=== PATIENT | male | born 1980 | race Caucasian/White ===

== ENCOUNTER 2018-03-16 16:55 | Emergency (ER) | payer OTHER ==
--- NOTE | 2018-03-16 17:56 | RAD REPORT ---
EXAM DESCRIPTION: RAD - Ankle Left 3 View - 03/16/2018 5:45 pm CLINICAL HISTORY: Left ankle pain, no known injury COMPARISON: None. FINDINGS: No fracture, dislocation or periosteal reaction. No joint effusion seen. No joint space na rrowing. No soft tissue abnormality. IMPRESSION: Negative left ankle for fracture or other acute finding.
--- NOTE | 2018-03-16 18:24 | ER ---
Nurse's Notes [facility] Name: Luis Hooper Age: 37 yrs Sex: Male : 1980 Arrival Date: 03/16/2018 Time: 16:57 Bed 13 Private MD: Diagnosis: Monoarthritis, not elsewhere classified, left ankle and foot Presentation: 03/16 16:59 Presenting complaint: Patient states: left foot pain started yesterday while at work. sv Denies any injury. Transition of care: patient was not received from another setting of care. Onset of symptoms was March 15, 2018. Care prior to arrival: None. 16:59 Method Of Arrival: Ambulatory sv 16:59 Acuity: JAMIE 4 sv 17:05 Risk Assessment: Do you want to hurt yourself or someone else? Patient reports no rb1 desire to harm self or others. Initial Sepsis Screen: Does the patient meet any 2 criteria? No. Patient's initial sepsis screen is negative. Does the patient have a suspected source of infection? No. Patient's initial sepsis screen is negative. Historical: - Allergies: 17:00 Tramadol HCl; sv - Home Meds: 17:05 None [Active]; rb1 - PMHx: 17:05 None; rb1 - PSHx: 17:00 Cholecystectomy; Tonsillectomy; sv - Immunization history:: Flu vaccine is not up to date. - Social history:: Smoking status: Patient uses tobacco products, smokes one pack cigarettes per day. - Ebola Screening: : No symptoms or risks identified at this time. Screenin:05 Abuse screen: Denies threats or abuse. Nutritional screening: No deficits noted. rb1 Tuberculosis screening: No symptoms or risk factors identified. Fall Risk None identified. Assessment: 17:05 General: Appears in no apparent distress. comfortable, Behavior is calm, cooperative. rb1 Pain: Complains of pain in left ankle Pain currently is 1 out of 10 on a pain scale. Pain began 1 day ago. Aggravated by weight bearing. Neuro: Level of Consciousness is awake, alert, obeys commands, Oriented to person, place, time, situation. Cardiovascular: Capillary refill < 3 seconds is brisk in bilateral fingers. Respiratory: Airway is patent Respiratory effort is even, unlabored, Respiratory pattern is regular, symmetrical. GI: No signs and/or symptoms were reported involving the gastrointestinal system. : No signs and/or symptoms were reported regarding the genitourinary system. Derm: Skin is pink, warm \T\ dry. Musculoskeletal: Swelling present in left ankle. 18:05 Reassessment: Patient appears in no apparent distress at this time. No changes from rb1 previously documented assessment. Vital Signs: 17:00 BP 153 / 104; Pulse 97; Resp 18; Temp 97.8; Pulse Ox 97% ; Height 5 ft. 10 in. (177.80 sv cm); Pain 1/10; 18:00 BP 140 / 96; Pulse 83; Resp 17; Pulse Ox 99% on R/A; Pain 1/10; rb1 ED Course: 16:57 Patient arrived in ED. as 17:00 Triage completed. sv 17:00 Arm band placed on Patient placed in an exam room, on a stretcher. sv 17:01 Chilo Patel MD is Attending Physician. gs 17:02 Denise Hurtado RN is Primary Nurse. rb1 17:05 Patient has correct armband on for positive identification. Bed in low position. Call rb1 light in reach. Side rails up X 1. Pulse ox on. NIBP on. 17:45 Ankle Left 3 View XRAY In Process Unspecified. EDMS 18:23 Sina Murray MD is Referral Physician. gs 18:37 No provider procedures requiring assistance completed. Patient did not have IV access rb1 during this emergency room visit. Administered Medications: 18:26 Drug: Ibuprofen 600 mg Route: PO; rb1 18:36 Follow up: Response: No adverse reaction; Medication administered at discharge. rb1 Outcome: 18:24 Discharge ordered by . gs 18:37 Patient left the ED. rb1 18:37 Discharged to home ambulatory. rb1 18:37 Condition: stable 18:37 Discharge instructions given to patient, Instructed on discharge instructions, follow up and referral plans. medication usage, Demonstrated understanding of instructions, follow-up care, medications, Prescriptions given X 1. Signatures: Dispatcher [employer] EDIN Saundra Rojo RN RN sv Martinez, Amelia as Denise Hurtado, RN RN rb1 Chilo Patel MD MD Corrections: (The following items were deleted from the chart) 17:16 17:05 Pain: Complains of pain in left ankle Pain currently is 1 out of 10 on a pain rb1 scale. Pain began 1 day ago. rb1
--- NOTE | 2018-03-16 18:24 | EDPHYS ---
Physician Documentation [facility] Name: Luis Hooper Age: 37 yrs Sex: Male : 1980 Arrival Date: 03/16/2018 Time: 16:57 Bed 13 Private MD: ED Physician Chilo Patel HPI: 03/16 18:17 This 37 yrs old Male presents to ER via Ambulatory with complaints of Foot gs Pain. 18:17 The patient presents with pain, that is acute. The complaints affect the left ankle. gs Onset: The symptoms/episode began/occurred acutely. Associated signs and symptoms: Pertinent negatives: numbness. Modifying factors: The symptoms are alleviated by nothing, the symptoms are aggravated by nothing. Severity of symptoms: At their worst the symptoms were moderate, in the emergency department the symptoms are unchanged. The patient has not experienced similar symptoms in the past. Historical: - Allergies: 17:00 Tramadol HCl; sv - Home Meds: 17:05 None [Active]; rb1 - PMHx: 17:05 None; rb1 - PSHx: 17:00 Cholecystectomy; Tonsillectomy; sv - Immunization history:: Flu vaccine is not up to date. - Social history:: Smoking status: Patient uses tobacco products, smokes one pack cigarettes per day. - Ebola Screening: : No symptoms or risks identified at this time. ROS: 18:17 All other systems are negative. gs Exam: 18:17 Constitutional: The patient appears alert, awake. gs 18:17 Cardiovascular: Exam negative for acute changes. 18:17 Respiratory: the patient does not display signs of respiratory distress, Breath sounds: are clear throughout, no bronchial sounds. 18:17 Back: pain, is absent. 18:17 Musculoskeletal/extremity: ROM: limited active range of motion due to pain, limited passive range of motion due to pain, Circulation is intact in all extremities. Pulses: are normal with no appreciated deficits, Joints: the left ankle displays painful range of motion, tenderness, no swelling. Vital Signs: 17:00 BP 153 / 104; Pulse 97; Resp 18; Temp 97.8; Pulse Ox 97% ; Height 5 ft. 10 in. (177.80 sv cm); Pain 1/10; 18:00 BP 140 / 96; Pulse 83; Resp 17; Pulse Ox 99% on R/A; Pain 1/10; rb1 MDM: 17:14 Patient medically screened. gs 18:17 Differential diagnosis: sprain, arthritis, gout. Data reviewed: vital signs, nurses gs notes. Counseling: I had a detailed discussion with the patient and/or guardian regarding: radiology results, the need for outpatient follow up. Response to treatment: the patient's symptoms have mildly improved after treatment, and as a result, I will discharge patient. 18:25 Counseling: I had a detailed discussion with the patient and/or guardian regarding: the gs presence of at least one elevated blood pressure reading (>120/80) during this emergency department visit. Special discussion: I have referred the patient to see his PCP for further evaluation of high blood pressure. 03/16 17:14 Order name: Ankle Left 3 View XRAY; Complete Time: 18:16 gs Administered Medications: 18:26 Drug: Ibuprofen 600 mg Route: PO; rb1 18:36 Follow up: Response: No adverse reaction; Medication administered at discharge. rb1 Disposition: 03/16/18 18:24 Discharged to Home. Impression: Monoarthritis, not elsewhere classified, left ankle and foot. - Condition is Stable. - Discharge Instructions: Arthritis, Managing Your Hypertension. - Prescriptions for Naprosyn 500 mg Oral Tablet - take 1 tablet by ORAL route 2 times per day take with food; 20 tablet. - Medication Reconciliation Form, Thank You Letter, Antibiotic Education, Prescription Opioid Use form. - Follow up: Sina Murray MD; When: 2 - 3 days; Reason: Re-evaluation by your physician. Signatures: Dispatcher [employer] Saundra Noriega RN RN Denise Hurtado RN RN rb1 Chilo Patel MD MD Corrections: (The following items were deleted from the chart) 18:37 18:24 03/16/2018 18:24 Discharged to Home. Impression: Monoarthritis, not elsewhere rb1 classified, left ankle and foot. Condition is Stable. Forms are Medication Reconciliation Form, Thank You Letter, Antibiotic Education, Prescription Opioid Use. Follow up: Dr. Sina Murray; When: 2 - 3 days; Reason: Re-evaluation by your physician. gs
[2018-03-16] MEDS ORDERED: IBUPROFEN 400 MG TAB ONE (18:36)
[2018-03-16] MEDS ORDERED: IBUPROFEN 200 MG TAB PO ONE (18:36)
== END 2018-03-16 18:37 | disposition home or self-care (01) ==
LOC: ER 16:55
DX: M13.172 Monoarthritis, not elsewhere classified, left ankle and foot (principal); F17.210 Nicotine dependence, cigarettes, uncomplicated; Z88.5 Allergy status to narcotic agent
CPT/HCPCS: 99284

== ENCOUNTER 2020-10-28 18:42 | Emergency (ER) | payer OTHER, SELFPAY ==
[2020-10-28] MEDS ORDERED: KETOROLAC 30 MG/ML INJ ONE ×2 (20:30→22:13)
--- NOTE | 2020-10-28 20:32 | RAD REPORT ---
EXAM DESCRIPTION: CT - Pelvis Wo Cont - 10/28/2020 8:23 pm CLINICAL HISTORY: blunt trauma, pain COMPARISON: No comparisons FINDINGS: No pelvic or hip fracture identified. Normal appendix. No acute bowel abnormality is ident ified. No free fluid is seen. The bladder and prostate are unremarkable. The hips are located. No foc al degenerative changes are identified. IMPRESSION: No pelvic or hip fractures identified.
--- NOTE | 2020-10-28 20:34 | RAD REPORT ---
EXAM DESCRIPTION: CT - Spine Lumbar Wo Con - 10/28/2020 8:23 pm CLINICAL HISTORY: Radiculopathy. blunt trauma;Pain COMPARISON: No comparisons TECHNIQUE: Axial noncontrast CT imaging of the lumbar spine was performed with coronal and sagittal re-formatted images. All CT scans are performed using dose optimization technique as appropriate and may include automated exposure control or mA/KV adjustment according to patient size. FINDINGS: No acute lumbar spine fracture seen. No aggressive marrow pattern or malalignment. Paraspinal tissues are normal in thickness. No paraspinal abscess or hematoma seen. Intervertebral disc disease assessment is inherently limited by CT. Within these limitations, no high -grade canal stenosis suspected. Cholecystectomy. IMPRESSION: Negative examination. Consider MRI follow-up for assessment of disc disease if clinically desired.
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
[2020-10-28 22:27] VITALS: BP 167/93; TEMP 97.4; O2SAT 100
== END 2020-10-28 22:23 | disposition home or self-care (01) ==
LOC: ER 18:42
DX: S30.0XXA Contusion of lower back and pelvis, initial encounter (principal); W22.8XXA Striking against or struck by other objects, initial encounter; Z88.5 Allergy status to narcotic agent
CPT/HCPCS: 72131; 72192; 96372; 99283

== ENCOUNTER 2021-04-27 04:47 | Emergency (ER) | payer SELFPAY ==
[2021-04-27] MEDS ORDERED: KETOROLAC 30 MG/ML INJ ONE (06:03)
[2021-04-27] MEDS ORDERED: NA CHLORIDE 0.9% 1,000 ML ONE (06:03)
[2021-04-27 06:04] LABS: Absolute Lymphocytes (CBC) 2.4 K/uL (0.7-4.9); Hematocrit 46.4 % (39.6-49.0); Lymphocytes % 15.8 % (15.3-44.8); MPV 8.2 fL (7.6-11.3); RBC Red Blood Cell Count 5.67 M/uL (4.33-5.43)
[2021-04-27 06:11] LABS: Protime INR 0.96
[2021-04-27 06:27] LABS: ALT/SGPT 35 U/L (12-78); AST/SGOT 17 U/L (15-37); Albumin 3.9 g/dL (3.4-5.0); Alkaline Phosphatase 98 U/L (45-117); BUN Blood Urea Nitrogen 14 mg/dL (7-18); Bicarbonate 28 mmol/L (21-32); Bilirubin Total 0.4 mg/dL (0.2-1.0); Glucose Level 102 mg/dL (74-106); Potassium 3.5 mmol/L (3.5-5.1); Protein, Total 8.2 g/dL (6.4-8.2); Sodium Level 137 mmol/L (136-145)
[2021-04-27 06:30] LABS: Bilirubin Direct < 0.1 mg/dL (0-0.2)
--- NOTE | 2021-04-27 07:52 | RAD REPORT ---
EXAM DESCRIPTION: CT - Maxillofacial W/Cont - 04/27/2021 7:16 am CLINICAL HISTORY: Upper lip swelling and pain COMPARISON: None. TECHNIQUE: Axial 2 millimeter thick images of the facial bones were obtained following dynamic contr ast enhancement with sagittal and coronal reconstruction imaging. All CT scans are performed using dose optimization technique as appropriate and may include automated exposure control or mA/KV adjustment according to patient size. FINDINGS: Lucency and bone loss changes are present around the roots of teeth 7 and 8 on the right a nd more extensively with greater bone loss around the roots of teeth 9 in 10. Lucent changes in the m andible all around teeth 11 and 12 also present. At the tooth 9 in 10 level the bone loss changes ext end posteriorly into the anterior aspect of the hard palate. Soft tissue swelling and edema is seen i n the gingiva around all of these teeth extending into the surrounding soft tissues. No abscess or dr ainable soft tissue collection seen. Numerous additional teeth have lucency around the roots. Patient has numerous Rogaine, decayed or abs ent teeth. No foreign body in the soft tissues. Mandibles of the condyle are normally positioned. Minimal mucosa l thickening in the maxillary sinuses without air-fluid levels. No invasion into a sinus cavity ident ifiable. Left deviation of the anterior nasal septum is present. No globe or orbital content abnormal ity. Mastoid air cells are clear. IMPRESSION: Extensive dental decay with extensive inflammatory/ anxious changes causing bone loss in the anterior midline maxilla around teeth 7-10 and less extensively teeth 11 and 12. Bone loss changes could indicate osteomyelitis. Edematous/inflammatory soft tissue swelling involving the gums and soft tissues around the anterior m andible. No abscess or drainable soft tissue collection seen. CT findings do not suggest invasion into the sinus cavities.
--- NOTE | 2021-04-27 08:22 | EDPHYS ---
Physician Documentation [facility] Name: Luis Hooper Age: 40 yrs Sex: Male : 1980 Arrival Date: 04/27/2021 Time: 04:50 Bed 4 Private MD: MARCELINA Physician Han Chowdhury HPI: 04/27 05:53 This 40 yrs old Male presents to ER via Ambulatory with complaints of Lips Swelling, mh7 Mouth Problem. 05:53 The patient presents with pain, swelling. The problem is located in the mouth. Onset: mh7 The symptoms/episode began/occurred 3 day(s) ago. Duration: The symptoms are continuous, and are steadily getting worse. Modifying factors: The symptoms are alleviated by nothing, the symptoms are aggravated by nothing. Associated signs and symptoms: Pertinent positives: pain, swelling, Pertinent negatives: anorexia, chills, dysphagia, fever, inability to eat, nausea, redness in area, vomiting. Severity of symptoms: At their worst the symptoms were moderate, last night, in the emergency department the symptoms are unchanged. Patient reports having pain in his mouth starting 3 days ago. He states that he noticed swelling in the roof of his mouth that started last night. He denies any fever, nausea, vomiting, difficulty swallowing.. Historical: - Allergies: 05:13 Tramadol HCl; al4 - PSHx: 05:13 Cholecystectomy; al4 - Immunization history:: Adult Immunizations up to date. - Social history:: Smoking status: Patient reports the use of cigarette tobacco products, smokes one pack cigarettes per day. ROS: 05:53 Constitutional: Negative for fever, chills, and weight loss, Eyes: Negative for injury, mh7 pain, redness, and discharge, Neck: Negative for injury, pain, and swelling, Cardiovascular: Negative for chest pain, palpitations, and edema, Respiratory: Negative for shortness of breath, cough, wheezing, and pleuritic chest pain, Abdomen/GI: Negative for abdominal pain, nausea, vomiting, diarrhea, and constipation, Back: Negative for injury and pain, : Negative for injury, bleeding, discharge, and swelling, MS/Extremity: Negative for injury and deformity, Skin: Negative for injury, rash, and discoloration, Neuro: Negative for headache, weakness, numbness, tingling, and seizure, Psych: Negative for depression, anxiety, suicide ideation, homicidal ideation, and hallucinations, Allergy/Immunology: Negative for hives, rash, and allergies, Endocrine: Negative for neck swelling, polydipsia, polyuria, polyphagia, and marked weight changes, Hematologic/Lymphatic: Negative for swollen nodes, abnormal bleeding, and unusual bruising. Exam: 05:53 Head/Face: Normocephalic, atraumatic. Eyes: Pupils equal round and reactive to light, mh7 extra-ocular motions intact. Lids and lashes normal. Conjunctiva and sclera are non-icteric and not injected. Cornea within normal limits. Periorbital areas with no swelling, redness, or edema. Neck: Trachea midline, no thyromegaly or masses palpated, and no cervical lymphadenopathy. Supple, full range of motion without nuchal rigidity, or vertebral point tenderness. No Meningismus. Chest/axilla: Normal chest wall appearance and motion. Nontender with no deformity. No lesions are appreciated. 05:53 Respiratory: Lungs have equal breath sounds bilaterally, clear to auscultation and percussion. No rales, rhonchi or wheezes noted. No increased work of breathing, no retractions or nasal flaring. Abdomen/GI: Soft, non-tender, with normal bowel sounds. No distension or tympany. No guarding or rebound. No evidence of tenderness throughout. Back: No spinal tenderness. No costovertebral tenderness. Full range of motion. Skin: Warm, dry with normal turgor. Normal color with no rashes, no lesions, and no evidence of cellulitis. MS/ Extremity: Pulses equal, no cyanosis. Neurovascular intact. Full, normal range of motion. Neuro: Awake and alert, GCS 15, oriented to person, place, time, and situation. Cranial nerves II-XII grossly intact. Motor strength 5/5 in all extremities. Sensory grossly intact. Cerebellar exam normal. Normal gait. Psych: Awake, alert, with orientation to person, place and time. Behavior, mood, and affect are within normal limits. 05:53 Constitutional: The patient appears in no acute distress, alert, awake, anxious. 05:53 Cardiovascular: Rate: tachycardic, Rhythm: regular, Pulses: no pulse deficits are appreciated, Heart sounds: normal, normal S1and S2, Edema: is not appreciated, JVD: is not appreciated. 05:53 ENT: Mouth: Lips: normal, Oral mucosa: normal, Gums: normal with healthy appearance, 7 Tongue: is normal, abscess, is not appreciated, drooling, is not appreciated, Small, tender soft tissue round mass on anterior hard palate. No bleeding, induration, discharge., Posterior pharynx: is normal, airway is patent, Dental exam: dental caries, that is moderate, diffusely, fractured teeth are noted, not appreciated, gum swelling, not appreciated, Voice: is normal. Vital Signs: 05:10 BP 142 / 99; Pulse 126; Resp 18; Temp 97.7; Pulse Ox 97% ; Weight 63.5 kg; Height 5 ft. al4 10 in. (177.80 cm); 06:08 BP 147 / 116; Pulse 114; Resp 16; Pulse Ox 96% on R/A; st1 07:22 BP 143 / 95; Pulse 95; Resp 17; Pulse Ox 97% ; Pain 0/10; jh6 09:28 BP 136 / 98; Pulse 96; Resp 18; Pulse Ox 98% ; Pain 2/10; jh6 05:10 Body Mass Index 20.09 (63.50 kg, 177.80 cm) al4 MDM: 07:02 Transition of care: After a detail discussion of the patient's case, care is 7 transferred to Evelin Vogel MD. 08:20 Differential diagnosis: dental caries, gingivitis, dental abscess, pericoronitis, ma2 gingivostomatitis, Received signout from Dr. Chowdhury, as patient pending CT maxillofacial, can be discharged afterward, CT shows extensive dental infection, will give IV antibiotics discharged home on antibiotic and follow-up with dentist. Data reviewed: vital signs, nurses notes. Counseling: I had a detailed discussion with the patient and/or guardian regarding: the historical points, exam findings, and any diagnostic results supporting the discharge/admit diagnosis, the presence of at least one elevated blood pressure reading (>120/80) during this emergency department visit, the need for outpatient follow up. Response to treatment: the patient's symptoms have markedly improved after treatment. 08:21 Patient medically screened. [facility] 04/27 05:37 Order name: CBC with Diff; Complete Time: 06:55 [facility] [place] 04/27 05:37 Order name: Basic Metabolic Panel; Complete Time: 06:55 mh04/27 05:37 Order name: LFT's; Complete Time: 06:55 04/27 05:37 Order name: Protime (+inr); Complete Time: 06:55 04/27 05:37 Order name: Ptt, Activated; Complete Time: 06:55 04/27 05:41 Order name: UDS [facility] [place] 04/27 05:40 Order name: Saline Lock; Complete Time: 05:58 04/27 06:58 Order name: CT Maxillofacial W/cont; Complete Time: 08:18 7 Administered Medications: 06:01 Drug: Ketorolac 15 mg Route: IVP; Site: right antecubital; st1 08:15 Follow up: Response: Pain is decreased 6 06:02 Drug: NS 0.9% 1000 ml Route: IV; Rate: 1000 ml; Site: right antecubital; st1 08:55 Drug: Clindamycin 600 mg Route: IVPB; Infused Over: 30 mins; Site: right antecubital; tw2 09:30 Follow up: Response: No adverse reaction; IV Status: Completed infusion 6 08:59 Drug: Augmentin (Amoxicillin-Clavulanate) 875 mg Route: PO; tw2 09:30 Follow up: Response: No adverse reaction jh6 Disposition Summary: 04/27/21 08:21 Discharge Ordered Location: Home ma2 Condition: Stable ma2 Diagnosis - Dental root caries ma2 Followup: ma2 - With: Private Physician - When: Tomorrow - Reason: If symptoms return, Continuance of care Discharge Instructions: - Discharge Summary Sheet ma2 - Dental Caries, Adult ma2 - Diet and Dental Disease ma2 Forms: - Work release form tw2 - Medication Reconciliation Form ma2 - Thank You Letter ma2 - Antibiotic Education ma2 - Prescription Opioid Use ma2 Prescriptions: - ketorolac 10 mg Oral tablet - take 1 tablet by ORAL route every 6 hours not to exceed 40 mg in 24hrs; 20 ma2 tablet; Refills: 0, Product Selection Permitted - Augmentin 875-125 mg Oral Tablet - take 1 tablet by ORAL route every 12 hours for 10 days; 20 tablet; Refills: 0, ma2 Product Selection Permitted Signatures: Dispatcher [employer] Surekha Don RN RN 2 Evelin Vogel MD MD pa2 Han Chowdhury MD MD mh7 Alex Bobo Shellie RN RN st1 Leatha Zhu RN jh6
--- NOTE | 2021-04-27 08:22 | ER ---
Nurse's Notes [facility] Name: Luis Hooper Age: 40 yrs Sex: Male : 1980 Arrival Date: 04/27/2021 Time: 04:50 Bed 4 Private MD: Diagnosis: Dental root caries Presentation: 04/27 05:10 Chief complaint: Patient states: " my mouth started hurting on Sunday and today I al4 woke up with a swollen lip". Coronavirus screen: Vaccine status: Patient reports being unvaccinated. Ebola Screen: No symptoms or risks identified at this time. Initial Sepsis Screen: Does the patient meet any 2 criteria? No. Patient's initial sepsis screen is negative. Does the patient have a suspected source of infection? No. Patient's initial sepsis screen is negative. Risk Assessment: Do you want to hurt yourself or someone else? Patient reports no desire to harm self or others. Onset of symptoms was April 27, 2021. 05:10 Method Of Arrival: Ambulatory al4 05:10 Acuity: JAMIE 4 al4 07:29 Acuity: JAMIE 3 iw Triage Assessment: 05:13 General: Appears in no apparent distress. comfortable, Behavior is calm, cooperative. al4 Pain: Complains of pain in mouth. Neuro: Level of Consciousness is awake, alert, obeys commands, Oriented to person, place, time, situation. Cardiovascular: Capillary refill < 3 seconds Patient's skin is warm and dry. Respiratory: Airway is patent Respiratory effort is labored, Respiratory pattern is regular. Musculoskeletal: Range of motion: intact in all extremities. Historical: - Allergies: 05:13 Tramadol HCl; al4 - PSHx: 05:13 Cholecystectomy; al4 - Immunization history:: Adult Immunizations up to date. - Social history:: Smoking status: Patient reports the use of cigarette tobacco products, smokes one pack cigarettes per day. Screenin:07 Abuse screen: Denies threats or abuse. Nutritional screening: No deficits noted. st1 Tuberculosis screening: No symptoms or risk factors identified. Fall Risk None identified. No fall in past 12 months (0 pts). No secondary diagnosis (0 pts). IV access (20 points). Ambulatory Aid- None/Bed Rest/Nurse Assist (0 pts). Gait- Normal/Bed Rest/Wheelchair (0 pts) Mental Status- Oriented to own ability (0 pts). Total Laberto Fall Scale indicates No Risk (0-24 pts). Assessment: 04:56 Reassessment: triage assessment completed at bedside. al4 06:09 Reassessment: Patient appears in no apparent distress at this time. the patients upper st1 and lower lip(s) are swollen. 07:20 General: Appears in no apparent distress. Behavior is calm, cooperative. Pain: Denies jh6 pain. Vital Signs: 05:10 BP 142 / 99; Pulse 126; Resp 18; Temp 97.7; Pulse Ox 97% ; Weight 63.5 kg; Height 5 ft. al4 10 in. (177.80 cm); 06:08 BP 147 / 116; Pulse 114; Resp 16; Pulse Ox 96% on R/A; st1 07:22 BP 143 / 95; Pulse 95; Resp 17; Pulse Ox 97% ; Pain 0/10; jh6 09:28 BP 136 / 98; Pulse 96; Resp 18; Pulse Ox 98% ; Pain 2/10; jh6 05:10 Body Mass Index 20.09 (63.50 kg, 177.80 cm) al4 ED Course: 04:50 Patient arrived in ED. ja2 05:00 Han Chowdhury MD is Attending Physician. mh7 05:06 Vilma Hebert, RN is Primary Nurse. sm5 05:13 Triage completed. al4 05:13 Arm band placed on. al4 05:58 CBC with Diff Sent. st1 05:58 Protime (+inr) Sent. st1 05:58 Basic Metabolic Panel Sent. st1 05:58 LFT's Sent. st1 05:58 Ptt, Activated Sent. st1 06:07 Inserted saline lock: 20 gauge in right antecubital area, using aseptic technique. st1 06:08 Patient has correct armband on for positive identification. Bed in low position. Call st1 light in reach. Side rails up X 1. 06:08 Pulse ox on. NIBP on. st1 07:12 Primary Nurse role handed off by Vilma Hebert, INGRID bd 07:16 CT Maxillofacial W/cont In Process Unspecified. EDMS 07:19 Leatha Zhu, RN is Primary Nurse. jh6 07:19 [address] back from [address]. jh6 08:45 Awaiting: completion of IV abx PRIOR to discharge. tw2 09:29 IV discontinued, intact, bleeding controlled, No redness/swelling at site. Pressure jh6 dressing applied. Administered Medications: 06:01 Drug: Ketorolac 15 mg Route: IVP; Site: right antecubital; st1 08:15 Follow up: Response: Pain is decreased 6 06:02 Drug: NS 0.9% 1000 ml Route: IV; Rate: 1000 ml; Site: right antecubital; st1 08:55 Drug: Clindamycin 600 mg Route: IVPB; Infused Over: 30 mins; Site: right antecubital; tw2 09:30 Follow up: Response: No adverse reaction; IV Status: Completed infusion jh6 08:59 Drug: Augmentin (Amoxicillin-Clavulanate) 875 mg Route: PO; tw2 09:30 Follow up: Response: No adverse reaction [facility] Outcome: 08:21 Discharge ordered by . ma2 09:29 Discharged to home ambulatory. 6 09:29 Condition: good 09:29 Discharge instructions given to patient, Instructed on discharge instructions, follow up and referral plans. Demonstrated understanding of instructions, follow-up care, medications, Prescriptions given X 2. 09:31 Patient left the ED. [facility] Signatures: Dispatcher [employer] EDMS Yvette Hathaway Irene, INGRID QUINTERO iw Surekha Yin RN RN 2 Evelin Vogel MD MD md2 Han Chowdhury MD MD 7 Marisol Villegas Jennifer, RN RN 6 Alex Bobo Sarah, RN RN 5 Shantelle Dyer RN RN st1
[2021-04-27] MEDS ORDERED: CLINDAMYCIN 600MG/D5W 600 MG/50 ML BAG IV ONE (08:54)
[2021-04-27] MEDS ORDERED: AMOX/K CLAV 875 MG TAB ONE (08:54)
[2021-04-27 09:42] VITALS: TEMP 97.7
[2021-04-27 09:46] VITALS: BP 136/98; O2SAT 98
== END 2021-04-27 09:31 | disposition home or self-care (01) ==
LOC: ER 04:47
DX: K02.7 Dental root caries (principal); F17.210 Nicotine dependence, cigarettes, uncomplicated; Z88.5 Allergy status to narcotic agent
CPT/HCPCS: 36415; 70487; 80048; 80076; 85025; 85610; 85730; 96365; 96375; 99284; J7030; Q9967

== ENCOUNTER 2022-03-08 10:50 | Emergency (ER) | payer SELFPAY ==
--- OUTSIDE RECORDS SUMMARY | 2022-03-08 10:55 | XMS REPORT | Continuity of Care Document ---
:1980 Author Organization [facility] t Address [address] [place] [address] Care Team Providers Name Role Phone Pcp, Patient Does Not Have A Primary Care Physician +[id number] JOSEFINA RIOS Attending Clinician Unavailable Josefina Moreno Attending Clinician Problems This patient has no known problems. Allergies, Adverse Reactions, Alerts Allergy Allergy Status Severity Reaction(s) Onset Inactive Treating Comm ents Source Name Type Date Date Clinician Tramadol Propensi Active Itching Unive rs ty to 10-11 ity of adverse 00:00: [place] reaction 00 [facility] TRAMADOL DRUG Active ITCHING Univers INGREDI 10-11 ity of 00:00: [place] 00 Medical Branch NO KNOWN Drug Active Univers ALLERGIE Class ity of [facility] Social History Social Habit Start Date Stop Date Quantity Comments Source Exposure to 2021-10-01 2021-10-11 Not sure [facility] SARS-CoV-2 (event) 00:00:00 09:08:00 Medica l Branch Sex Assigned At [birth year] [facility] [place] 00:00:00 00:00:00 Medical Branch Smoking Status Start Date Stop Date Source Tobacco smoking consumption Univ [facility] Medical unknown Branch Medications This patient has no known medications. Vital Signs Vital Name Observation Time Observation Value Comments Source Systolic blood 2021-10-11 14:07:00 137 mm[Hg] Univer sity of pressure [facility] Diastolic blood 2021-10-11 14:07:00 95 mm[Hg] Unive rsity of [facility] Heart rate 2021-10-11 14:07:00 115 /min [facility] Body temperature 2021-10-11 14:07:00 36.94 Krystin [facility] Respiratory rate 2021-10-11 14:07:00 18 /min [facility] Body height 2021-10-11 14:07:00 177.8 cm [facility] Body weight 2021-10-11 14:07:00 64.864 kg [facility] BMI 2021-10-11 14:07:00 20.52 kg/m2 [facility] Oxygen saturation in 2021-10-11 14:07:00 98 /min [facility] blood by [facility] Pulse oximetry Branch Procedures Procedure Date / Time Performed Performing Clinician Sourc e RAPID INFLUENZA A/B 2021-10-11 14:18:00 Josefina Rios [facility] COVID-19 (ID NOW 2021-10-11 14:18:00 Josefina Rios [facility] RAPID TESTING) [facility] NOTICE OF PRIVACY 2021-10-11 14:03:48 Doctor Unassigned, No Univ [facility] PRACTICES Name [facility] Encounters Start End Encounter Admission Attending Care Care Encounter Source Date/Time Date/Time Type Type Clinicians Facility Department ID 2021-10-11 2021-10-11 [facility] [id number] Univers 09:09:00 10:18:00 JSOEFINA dotson [facility] 2021-10-11 2021-10-11 Emergency [facility] [id number] Univers 09:09:00 10:18:00 [id number] [id number] [facility] [id number] [facility] 084 Branch Results This patient has no known results.
--- NOTE | 2022-03-08 12:08 | RAD REPORT ---
EXAM DESCRIPTION: RAD - Chest Single View - 03/08/2022 11:42 am CLINICAL HISTORY: COUGH COMPARISON: Portable 2016 study TECHNIQUE: AP portable chest image was obtained 03/08/2022 11:42 am . FINDINGS: No peripheral mass or consolidation. No failure or volume overload findings. Bibasilar int erstitial pattern is mildly prominent. This is not substantially different from the right ear exam wh en allowing for the differences in technique over this long interval. A minimal interstitial edema or infiltrate could be masked. No findings to suspect a bacterial infection. Heart and vasculature are normal. No measurable pleural effusion and no pneumothorax. No acute bony abnormality seen. No acute aortic findings suspected. IMPRESSION: No focal mass or consolidation to suspect bacterial infection. Mild interstitial bibasilar prominence is not clearly different from comparison. Mild interstitial ed ari or infiltrate could be masked.
[2022-03-08 12:27] LABS: SARS-COV-2 RT PCR NEGATIVE (NEGATIVE)
--- NOTE | 2022-03-08 12:36 | ER ---
Nurse's Notes [facility] Name: Luis Hooper Age: 41 yrs Sex: Male : 1980 Arrival Date: 03/08/2022 Time: 10:54 Bed IW2 Private MD: Diagnosis: Cough Presentation: 03/08 11:09 Chief complaint: Patient states: cough, congestion, runny nose, scratchy throat x 2 aa5 weeks ago. Coronavirus screen: congestion, cough unrelated to allergies. Ebola Screen: Patient denies travel to an Ebola-affected area in the 21 days before illness onset. Initial Sepsis Screen: Does the patient meet any 2 criteria? HR > 90 bpm. Does the patient have a suspected source of infection? No. Patient's initial sepsis screen is negative. Risk Assessment: Do you want to hurt yourself or someone else? Patient reports no desire to harm self or others. Onset of symptoms was 2021. 11:09 Method Of Arrival: Ambulatory aa5 11:09 Acuity: JAMIE 4 aa5 Triage Assessment: 11:09 General: Appears comfortable, Behavior is calm, cooperative. Pain: Denies pain. Neuro: aa5 Level of Consciousness is awake, alert, obeys commands, Oriented to person, place, time, situation. Respiratory: Airway is patent Respiratory effort is even, unlabored, Respiratory pattern is regular, symmetrical. Derm: Skin is pink, warm \T\ dry. Historical: - Allergies: 11:08 Tramadol HCl; aa5 - Home Meds: 11:08 None [Active]; aa5 - PMHx: 11:10 None; aa5 - PSHx: 11:08 Cholecystectomy; aa5 - Immunization history:: Adult Immunizations unknown. - Social history:: Smoking status: Patient reports the use of cigarette tobacco products, smokes one pack cigarettes per day. Assessment: 12:50 Reassessment: Patient is alert, oriented x 3, equal unlabored respirations, skin aa5 warm/dry/pink. Vital Signs: 11:09 BP 137 / 86; Pulse 103; Resp 18 S; Temp 98.6(TE); Pulse Ox 98% on R/A; Weight 65.77 kg aa5 (R); Height 5 ft. 10 in. (177.80 cm) (R); 11:09 Body Mass Index 20.81 (65.77 kg, 177.80 cm) aa5 ED Course: 10:54 Patient arrived in ED. rg4 11:06 Husam Mac PA is PHCP. naila 11:06 Gian Davis MD is Attending Physician. [facility] 11:09 Arm band placed on. aa5 11:10 Triage completed. aa5 11:43 Chest Single View XRAY In Process Unspecified. EDMS 12:50 No provider procedures requiring assistance completed. Patient did not have IV access aa5 during this emergency room visit. Administered Medications: No medications were administered Outcome: 12:35 Discharge ordered by . jm 12:50 Discharged to home ambulatory. aa5 12:50 Condition: stable 12:50 Discharge instructions given to patient, Instructed on discharge instructions, follow up and referral plans. medication usage, Demonstrated understanding of instructions, follow-up care, medications, Prescriptions given X 3. 12:52 Patient left the ED. aa5 Signatures: Dispatcher [employer] EDMS Husam Mac PA PA Marquita Bhatt, RN RN aa5 Christina Weber rg4
--- NOTE | 2022-03-08 12:36 | EDPHYS ---
Physician Documentation [facility] Name: Luis Hooper Age: 41 yrs Sex: Male : 1980 Arrival Date: 03/08/2022 Time: 10:54 Bed IW2 Private MD: ED Physician Gian Davis HPI: 03/08 11:14 This 41 yrs old Male presents to ER via Ambulatory with complaints of Flu Symptoms. jmm 11:14 The patient or guardian reports cough. Onset: The symptoms/episode began/occurred jmm gradually. Modifying factors: The symptoms are alleviated by nothing. the symptoms are aggravated by nothing. This is a 41 year old male with no chronic medical conditions that presents to the ED with complaints of chest congestion, cough, wheezing, sore throat beginning approx 2 weeks ago. Denies vomiting, abdominal pain, chest pain. . Historical: - Allergies: 11:08 Tramadol HCl; aa5 - Home Meds: 11:08 None [Active]; aa5 - PMHx: 11:10 None; aa5 - PSHx: 11:08 Cholecystectomy; aa5 - Immunization history:: Adult Immunizations unknown. - Social history:: Smoking status: Patient reports the use of cigarette tobacco products, smokes one pack cigarettes per day. ROS: 11:14 Constitutional: Positive for jmm 11:14 ENT: Positive for sore throat. 11:14 Respiratory: Positive for cough, wheezing. 11:14 All other systems are negative. Exam: 11:14 Constitutional: This is a well developed, well nourished patient who is awake, alert, jmm and in no acute distress. Head/Face: atraumatic. Eyes: EOMI, no conjunctival erythema appreciated 11:14 Neck: Trachea midline, Supple Chest/axilla: Normal chest wall appearance and motion. Cardiovascular: Regular rate and rhythm. No edema appreciated 11:14 Abdomen/GI: Non distended Back: Normal ROM Skin: General appearance color normal MS/ Extremity: Moves all extremities, no obvious deformities appreciated, no edema noted to the lower extremities Neuro: Awake and alert Psych: Behavior is normal, Mood is normal, Patient is cooperative and pleasant 11:14 ENT: Posterior pharynx: erythema, that is mild. 11:14 Respiratory: the patient does not display signs of respiratory distress, Respirations: normal, Breath sounds: bronchial sounds, that are moderate, are scattered. Vital Signs: 11:09 BP 137 / 86; Pulse 103; Resp 18 S; Temp 98.6(TE); Pulse Ox 98% on R/A; Weight 65.77 kg aa5 (R); Height 5 ft. 10 in. (177.80 cm) (R); 11:09 Body Mass Index 20.81 (65.77 kg, 177.80 cm) aa5 MDM: 11:14 Patient medically screened. [facility] 12:34 Data reviewed: vital signs, nurses notes. Counseling: I had a detailed discussion with naila the patient and/or guardian regarding: the historical points, exam findings, and any diagnostic results supporting the discharge/admit diagnosis, lab results, radiology results, the need for outpatient follow up, to return to the emergency department if symptoms worsen or persist or if there are any questions or concerns that arise at home. ED course: Patient is alert and non toxic in appearance. No signs of resp distress. Advised to follow up with pcp and otherwise given strict return precautions. patient understood and agrees with the plan of care. . 03/08 11:15 Order name: COVID-19/FLU A+B/RSV; Complete Time: 12:28 aa 03/08 11:15 Order name: Strep; Complete Time: 12:11 [facility] 03/08 11:14 Order name: Chest Single View XRAY; Complete Time: 12:11 aa5 03/08 11:57 Order name: Throat Culture EDMS Administered Medications: No medications were administered Disposition Summary: 03/08/22 12:35 Discharge Ordered Location: Home [facility] Condition: Stable [facility] Diagnosis - Cough [facility] Followup: [facility] - With: Private Physician - When: 2 - 3 days - Reason: Recheck today's complaints, Continuance of care, Re-evaluation by your physician Discharge Instructions: - Discharge Summary Sheet [facility] - Cough, Adult [facility] Forms: - Work release form [facility] - Medication Reconciliation Form [facility] - Thank You Letter [facility] - Antibiotic Education [facility] - Prescription Opioid Use [facility] Prescriptions: - albuterol sulfate 90 mcg/actuation Inhalation HFA aerosol inhaler - inhale 2 puff by INHALATION route every 4 hours; 1 Pump; Refills: 0, Product [facility] Selection Permitted - Prednisone 20 mg Oral Tablet - take 3 tablets by ORAL route once daily for 5 days; 15 tablet; Refills: 0, jmm Product Selection Permitted - Zithromax Z-Yehuda 250 mg Oral Tablet - take 1 tablet by ORAL route as directed for 5 days Day 1 - take two (2) tablets [facility] one time. Day 2, 3, 4 , 5 take one (1) tablet once daily.; 6 tablet; Refills: 0, Product Selection Permitted Signatures: Dispatcher [employer] Husam Sierra PA PA jmm Calderon, Audri, RN RN aa5
[2022-03-08 12:56] VITALS: BP 137/86; TEMP 98.6; O2SAT 98
== END 2022-03-08 12:52 | disposition home or self-care (01) ==
LOC: ER 10:50
DX: R05.9 Cough, unspecified (principal); Z20.822 Contact with and (suspected) exposure to COVID-19; F17.210 Nicotine dependence, cigarettes, uncomplicated; Z88.5 Allergy status to narcotic agent
CPT/HCPCS: 0241U; 71045; 87070; 87081; 99283

== ENCOUNTER 2022-05-02 10:46 | Emergency (ER) | payer SELFPAY ==
--- OUTSIDE RECORDS SUMMARY | 2022-05-02 11:03 | XMS REPORT | Continuity of Care Document ---
:1980 Author Organization [facility] t Address [address] [place] [address] [address] [place] [address] Care Team Providers Name Role Phone Pcp, [...] ty to 10-11 ity of adverse 00:00: [place] reaction 00 [facility] s Branch TRAMADOL DRUG Active ITCHING Univers INGREDI 10-11 ity of 00:00: [place] 00 Medical Branch NO KNOWN Drug Active Univers ALLERGIE Class ity of [facility] Social History Social Habit Start Date Stop Date Quantity Comments Source Exposure to 2021-10-01 2021-10-11 Not sure [facility] SARS-CoV-2 (event) 00:00:00 09:08:00 Medica l Branch Sex Assigned At [birth year] [facility] 00:00:00 00:00:00 Medical Branch Smoking Status Start Date Stop Date Source Tobacco smoking consumption [facility] Medical unknown Branch Medications This patient has no known medications. Vital Signs Vital Name Observation Time Observation Value Comments Source Systolic blood 2021-10-11 14:07:00 137 mm[Hg] Univer sity of pressure [facility] Diastolic blood 2021-10-11 14:07:00 95 mm[Hg] Unive rsity of [facility] Heart rate 2021-10-11 14:07:00 115 /min [facility] Body temperature 2021-10-11 14:07:00 36.94 Krystin [facility] Respiratory rate 2021-10-11 14:07:00 18 /min [facility] Body height 2021-10-11 14:07:00 177.8 cm [facility] Body weight 2021-10-11 14:07:00 64.864 kg [facility] BMI 2021-10-11 14:07:00 20.52 kg/m2 [facility] Oxygen saturation in 2021-10-11 14:07:00 98 /min [facility] blood by [facility] Pulse oximetry Branch Procedures Procedure Date / Time Performed Performing Clinician Sourc e RAPID INFLUENZA A/B 2021-10-11 14:18:[address] [facility] COVID-19 (ID NOW 2021-10-11 14:18:00 Josefina Rios [facility] RAPID TESTING) [facility] NOTICE OF PRIVACY 2021-10-11 14:03:48 Doctor Unassigned, No [facility] PRACTICES Name [facility] Encounters Start End Encounter Admission Attending Care Care Encounter Source Date/Time Date/Time Type Type Clinicians Facility Department ID 2021-10-11 2021-10-11 Emergency [facility] [id number] Univers 09:09:00 10:18:00 JOSEFINA dotson [facility] 2021-10-11 2021-10-11 Emergency [facility] [id number] Univers 09:09:00 10:18:00 Josefina FELIX [id number] [facility] [id number] [facility] [id number] [facility] 084 Branch Results This patient has no known results.
--- NOTE | 2022-05-02 12:13 | RAD REPORT ---
EXAM DESCRIPTION: RAD - Hand Right 3 View - 05/02/2022 11:17 am CLINICAL HISTORY: Pain COMPARISON: None. FINDINGS: Three views of the right hand. No fracture is identified. There is no dislocation or periosteal reaction noted. No foreign body or other soft tissue abnormalit y. IMPRESSION: Negative right hand examination.
--- NOTE | 2022-05-02 12:26 | EDPHYS ---
Physician Documentation [facility] Name: Luis Hooper Age: 41 yrs Sex: Male : 1980 Arrival Date: 05/02/2022 Time: 10:47 Bed IW3 Private MD: ED Physician Francesco Allen HPI: 05/02 11:20 This 41 yrs old Male presents to ER via Ambulatory with complaints of Hand Injury. rn 11:20 The patient or guardian reports injury, pain. The complaints affect the right hand rn diffusely. Onset: The symptoms/episode began/occurred this morning. Modifying factors: The symptoms are alleviated by nothing, the symptoms are aggravated by movement, dependent position. Associated signs and symptoms: Pertinent positives: tingling distally, Pertinent negatives: cyanosis distally, fever. Severity of symptoms: At their worst the symptoms were mild, in the emergency department the symptoms are unchanged. The patient has not experienced similar symptoms in the past. The patient has not recently seen a physician. 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 Reports pain and swelling to dorsum of right hand. . Historical: - Allergies: 10:54 Tramadol HCl; ap3 - Home Meds: 10:55 None [Active]; ap3 - PSHx: 10:54 Cholecystectomy; ap3 - Immunization history:: Client reports having NOT received the Covid vaccine. Last tetanus immunization: unknown, Flu vaccine is not up to date. - Social history:: Smoking status: Patient reports the use of cigarette tobacco products, 1.5 PPD. - Family history:: not pertinent. - Hospitalizations: : No recent hospitalization is reported. ROS: 11:20 Constitutional: Negative for fever, chills, and weight loss, MS/Extremity: + injury and rn pain to right hand Skin: Negative for injury, rash, and discoloration, Neuro: + tingling to fingers. Exam: 11:20 Constitutional: This is a well developed, well nourished patient who is awake, alert, rn and in no acute distress. MS/ Extremity: Pulses equal, no cyanosis. Neurovascular intact. Full, normal range of motion. + mild swelling to dorsum of right hand, no open wounds, no gross deformity. Mild tenderness along 3rd/4th/5th right hand Vital Signs: 10:53 BP 135 / 95; Pulse 108; Resp 18; Temp 98.2; Pulse Ox 96% ; ap3 10:57 Weight 65.77 kg; ap3 MDM: 10:48 Patient medically screened. rn 12:24 Differential diagnosis: dislocation, closed fracture, contusion. Data reviewed: vital rn signs, nurses notes, radiologic studies, plain films, and as a result, I will discharge patient. Independent interpretation of the following test(s) in the Emergency Department X-Ray: My interpretation is Xray right hand images neg for acute fracture per my interpretation. Counseling: I had a detailed discussion with the patient and/or guardian regarding: the historical points, exam findings, and any diagnostic results supporting the discharge/admit diagnosis, radiology results, the need for outpatient follow up, to return to the emergency department if symptoms worsen or persist or if there are any questions or concerns that arise at home. Special discussion: I discussed with the patient/guardian in detail that at this point there is no indication for admission to the hospital. It is understood, however, that if the symptoms persist or worsen the patient needs to return immediately for re-evaluation. 05/02 10:57 Order name: XRAY Hand RIGHT 3 View; Complete Time: 12:23 rn Administered Medications: No medications were administered Disposition Summary: 05/02/22 12:25 Discharge Ordered Location: Home rn Problem: new rn Symptoms: have improved rn Condition: Stable rn Diagnosis - Contusion of right hand rn Followup: rn - With: Private Physician - When: As needed - Reason: Recheck today's complaints, Re-evaluation by your physician Discharge Instructions: - Discharge Summary Sheet rn - Hand Contusion rn Forms: - Medication Reconciliation Form rn - Thank You Letter rn - Antibiotic health care attorney - Prescription Opioid Use rn - Work release form ap3 Signatures: Dispatcher [employer] Francesco Stapleton MD MD rn Prokisch, Amanda, RN RN ap3
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
[2022-05-02 12:37] VITALS: BP 135/95; TEMP 98.2; O2SAT 96
== END 2022-05-02 12:33 | disposition home or self-care (01) ==
LOC: ER 10:46
DX: S60.221A Contusion of right hand, initial encounter (principal); F17.210 Nicotine dependence, cigarettes, uncomplicated; Z88.5 Allergy status to narcotic agent

== ENCOUNTER → 2023-04-03 | Emergency (ER) | payer SELFPAY ==
[~2023-04-03] MED LIST: CIPROFLOXACIN 400mg IV 400 MG/200 ML BAG IV ONE; METRONIDAZOLE 500mg IVPB 500 MG/100 ML BAG IV ONE; MORPHINE 2 MG/ML SYR ONE; NA CHLORIDE 0.9% 1,000 ML ONE; ONDANSETRON 4 MG/2 ML VIAL ONE
--- OUTSIDE RECORDS SUMMARY | 2023-04-03 09:03 | XMS REPORT | Continuity of Care Document ---
Author Name Unknown Address [address] [facility] [place] [address] [facility] Address [address] [facility] [address] [place] [address] Care Team Providers Care Vice Admiral Name Role Phone Pcp, Patient Does Not Have A Primary Care Physic goldie JOSEFINA RIOS Attending Clinician Unavailab le Josefina Moreno Attending Clinician Allergies, Adverse Reactions, Alerts Allergy Name Allergy Type Status Severity Reaction(s) Onset Date Inactive Date Treating Clinician Comments Source Tramadol Propensi ty to adverse reaction s Active Itching 10-11 00:00: 00 [facility] TRAMADOL DRUG INGREDI Active ITCHING 10-11 00:00: 00 [facility] NO KNOWN ALLERGIE S Drug Class Active [facility] Social History Social Habit Start Date Stop Date Quantity Comments Source Exposure to SARS-CoV-2 (event) 2021-10-01 00:00:00 2021-10-11 09:08:00 Not sure [facility] Sex Ass[birth year] At 1980 00:00:00 1980 00:00:00 [facility] Smoking Status Start Date Stop Date Source Tobacco smoking consumption unknown [facility] Vital Signs Vital Name Observation Time Observation Value Comments S ource Systolic blood pressure 2021-10-11 14:07:00 137 mm[Hg] [facility] Diastolic blood pressure 2021-10-11 14:07:00 95 mm[Hg] [place] [facility] Heart rate 2021-10-11 14:07:00 115 /min [facility] Body temperature 2021-10-11 14:07:00 36.94 Krystin [facility] Respiratory rate 2021-10-11 14:07:00 18 /min [facility] Body height 2021-10-11 14:07:00 177.8 cm [facility] Body weight 2021-10-11 14:07:00 64.864 kg [facility] BMI 2021-10-11 14:07:00 20.52 kg/m2 [facility] Oxygen saturation in Arterial blood by Pulse oximetry 2021-10-11 14:07:00 98 /min [facility] Procedures Procedure Date / Time Performed Performing Clinicia n Source RAPID INFLUENZA A/B 2021-10-11 14:18:00 Josefina Rios [facility] COVID-19 (ID NOW RAPID TESTING) 2021-10-11 14:18:00 Josefina Rios [facility] NOTICE OF PRIVACY PRACTICES 2021-10-11 14:03:48 Doctor Unassigned, Cecilia [facility] Encounters Start Date/Time End Date/Time Encounter Type Admission Type Attending Clinicians Care Facility Care Department Encounter ID Source 2021-10-11 09:09:00 2021-10-11 10:18:00 Emergency X JOSEFINA RIOS SDOFELIA ERT [id number] [facility] 2021-10-11 09:09:00 2021-10-11 10:18:00 Emergency Josefina Rios [facility] [id number] [facility]
[2023-04-03 10:05] LABS: Absolute Lymphocytes (CBC) 2.5 K/uL (0.7-4.9); Hematocrit 45.4 % (39.6-49.0); Lymphocytes % 21.3 % (15.3-44.8); MCV 82.3 fL (80-100); MPV 8.6 fL (7.6-11.3); Platelets 243 thou/uL (152-406); RBC Red Blood Cell Count 5.52 M/uL (4.33-5.43)
[2023-04-03 10:10] LABS: SARS-CoV-2 Antigen Rapid Res Negative (Negative)
[2023-04-03 10:17] LABS: Albumin 3.6 g/dL (3.4-5.0); Bilirubin Total 0.2 mg/dL (0.2-1.0); Potassium 3.9 mEq/L (3.5-5.1); Protein, Total 7.5 g/dL (6.4-8.2)
--- NOTE | 2023-04-03 10:51 | RAD REPORT ---
EXAM DESCRIPTION: CT - Abdomen Pelvis W Contrast - 04/03/2023 10:11 am CLINICAL HISTORY: ABD PAIN COMPARISON: No comparisons TECHNIQUE: Thin cut axial CT imaging of the abdomen and pelvis was performed following intravenous a dministration of 100 mL Isovue 300. Multiplanar reformats were generated and reviewed. All CT scans are performed using dose optimization technique as appropriate and may include automated exposure control or mA/KV adjustment according to patient size. FINDINGS: No suspicious findings in the lung bases. The liver, spleen, adrenal glands, and pancreas show no suspicious findings. Gallbladder was surgical ly removed. Mild prominence of the Common bile duct and central intrahepatic biliary radicles, likely within normal limits in a postcholecystectomy patient. Symmetric renal function is seen with no hydronephrosis or suspicious renal mass. No dilated bowel loops or bowel wall thickening. Appendix is unremarkable. Fluid filling within nondi stended small bowel loops throughout the abdomen, a nonspecific finding. No free air, free fluid or i nflammatory stranding. No hernia, mass or bulky lymphadenopathy. The urinary bladder is without signi ficant finding. No suspicious bony findings. IMPRESSION: No acute intra-abdominal process. Nonspecific fluid filling within nondistended small b owel loops, may reflect infectious or inflammatory enteritis. Mildly prominent common bile duct caliber and central intrahepatic biliary radicles, likely within no rmal in postcholecystectomy status. Please correlate with bilirubin profile.
--- NOTE | 2023-04-03 10:55 | RAD REPORT ---
EXAM DESCRIPTION: RAD - Chest Pa And Lat (2 Views) - 04/03/2023 10:16 am CLINICAL HISTORY: COUGH COMPARISON: Chest Single View dated 03/08/2022; Chest Single View dated 11/07/2015 TECHNIQUE: PA and lateral views of the chest were obtained. FINDINGS: The lungs are clear. Heart size is normal and central vasculature is within normal limits. No pleural effusion or pneumothorax seen. No acute bony finding noted. IMPRESSION: No acute cardiopulmonary process.
--- NOTE | 2023-04-03 12:45 | EDPHYS ---
Physician Documentation [facility] Name: Luis Hooper Age: 42 yrs Sex: Male : 1980 Arrival Date: 04/03/2023 Time: 09: Bed 10 Private MD: ED Physician Gian Davis HPI: 04/03 11:38 This 42 yrs old Male presents to ER via Ambulatory with complaints of suzanne Vomiting/Diarrhea. 11:38 The patient presents to the emergency department with nausea, diarrhea, abdominal pain, suzanne of the right upper quadrant, left upper quadrant, right lower quadrant and left lower quadrant. Onset: The symptoms/episode began/occurred 1 day(s) ago. Possible causes: unknown. The symptoms are aggravated by nothing. The symptoms are alleviated by nothing. Associated signs and symptoms: The patient has no apparent associated signs or symptoms. Severity of symptoms: At their worst the symptoms were moderate in the emergency department the symptoms have improved mildly. The patient has not experienced similar symptoms in the past. Historical: - Allergies: 09:30 Tramadol HCl; ap3 - Home Meds: : None [Active]; ap3 - PMHx: :30 None; ap3 - PSHx: 09:30 Cholecystectomy; ap3 - Immunization history:: Adult Immunizations up to date, Client reports having NOT received the Covid vaccine. Last tetanus immunization: up to date. - Social history:: Smoking status: Patient denies any tobacco usage or history of. ROS: 11:38 Constitutional: Negative for fever, chills, and weight loss, Eyes: Negative for injury, suzanne pain, redness, and discharge, ENT: Negative for injury, pain, and discharge, Neck: Negative for injury, pain, and swelling, Respiratory: Negative for shortness of breath, cough, wheezing, and pleuritic chest pain, Back: Negative for injury and pain, : Negative for injury, bleeding, discharge, and swelling, MS/Extremity: Negative for injury and deformity, Skin: Negative for injury, rash, and discoloration, Neuro: Negative for headache, weakness, numbness, tingling, and seizure, Psych: Negative for depression, anxiety, suicide ideation, homicidal ideation, and hallucinations, Allergy/Immunology: Negative for hives, rash, and allergies, Endocrine: Negative for neck swelling, polydipsia, polyuria, polyphagia, and marked weight changes, Hematologic/Lymphatic: Negative for swollen nodes, abnormal bleeding, and unusual bruising, 11:38 Cardiovascular: Positive for palpitations, 11:38 Respiratory: Positive for cough, "sounds productive", 11:38 Abdomen/GI: Positive for abdominal pain, nausea, diarrhea, abdominal cramps, abdominal distension, Exam: 11:38 Constitutional: This is a well developed, well nourished patient who is awake, alert, suzanne and in no acute distress. Head/Face: Normocephalic, atraumatic. Eyes: Pupils equal round and reactive to light, extra-ocular motions intact. Lids and lashes normal. Conjunctiva and sclera are non-icteric and not injected. Cornea within normal limits. Periorbital areas with no swelling, redness, or edema. ENT: Nares patent. No nasal discharge, no septal abnormalities noted. Tympanic membranes are normal and external auditory canals are clear. Oropharynx with no redness, swelling, or masses, exudates, or evidence of obstruction, uvula midline. Mucous membranes moist. Neck: Trachea midline, no thyromegaly or masses palpated, and no cervical lymphadenopathy. Supple, full range of motion without nuchal rigidity, or vertebral point tenderness. No Meningismus. Chest/axilla: Normal chest wall appearance and motion. Nontender with no deformity. No lesions are appreciated. Cardiovascular: Regular rate and rhythm with a normal S1 and S2. No gallops, murmurs, or rubs. Normal PMI, no JVD. No pulse deficits. Respiratory: Lungs have equal breath sounds bilaterally, clear to auscultation and percussion. No rales, rhonchi or wheezes noted. No increased work of breathing, no retractions or nasal flaring. Back: No spinal tenderness. No costovertebral tenderness. Full range of motion. Male : Normal genitalia with no discharge or lesions. Skin: Warm, dry with normal turgor. Normal color with no rashes, no lesions, and no evidence of cellulitis. MS/ Extremity: Pulses equal, no cyanosis. Neurovascular intact. Full, normal range of motion. Neuro: Awake and alert, GCS 15, oriented to person, place, time, and situation. Cranial nerves II-XII grossly intact. Motor strength 5/5 in all extremities. Sensory grossly intact. Cerebellar exam normal. Normal gait. Psych: Awake, alert, with orientation to person, place and time. Behavior, mood, and affect are within normal limits. 11:38 ECG was reviewed by the Attending Physician. 11:38 Abdomen/GI: Inspection: distension, that is mild, Bowel sounds: normal, Palpation: mild abdominal tenderness, in all quadrants, Liver: no appreciated palpable abnormalities, Hernia: not appreciated, 12:44 ECG was reviewed by the Attending Physician. suzanne Vital Signs: 09:29 BP 151 / 107; Pulse 104; Resp 20; Temp 98.1; Pulse Ox 100% ; Weight 65.77 kg; Height 5 ap3 ft. 10 in. ; Pain 7/10; 12:30 BP 130 / 93; Pulse 104; Resp 18; Pulse Ox 97% on R/A; Pain 3/10; nj1 13:40 BP 124 / 87; Pulse 93; Resp 20; Pulse Ox 100% ; nj1 09:29 Body Mass Index 20.81 (65.77 kg, 177.8 cm) ap3 09:29 Pain Scale: Adult ap3 12:30 Pain Scale: Adult nj1 MDM: 09:09 Patient medically screened. [facility] 11:41 Differential diagnosis: Nonspecific abd pain, gastritis, pancreatitis, appendicitis, suzanne diverticulitis, viral gastroenteritis, gastroenteritis, bowel obstruction, gastritis, gastroesophageal reflux disease. Data reviewed: vital signs, nurses notes, lab test result(s), EKG, radiologic studies, CT scan. Consideration of Admission/Observation Escalation of care including admission/observation considered. I considered the following discharge prescriptions or medication management in the emergency department Medications were administered in the Emergency Department. See MAR. Independent interpretation of the following test(s) in the Emergency Department CT Scan: My interpretation is ct abd/pelvis. Test considered but Not performed: Ultrasound no abd usg. Care significantly affected by the following chronic conditions: none , tobacco abuse. 04/03 09:28 Order name: CBC with Diff; Complete Time: 11:04/03 09:28 Order name: CMP; Complete Time: 11:04/03 09:28 Order name: Lipase; Complete Time: 11:04/03 09:34 Order name: SARS RAPID; Complete Time: 11:04/03 09:34 Order name: Flu; Complete Time: 11:04/03 11:37 Order name: Troponin HS 04/03 09:28 Order name: CT Abd/Pelvis - IV Contrast Only; Complete Time: 11: [facility] 04/03 09:34 Order name: Chest Pa And Lat (2 Views) XRAY; Complete Time: 11: [facility] 04/03 11:37 Order name: EKG; Complete Time: 11:37 [facility] 04/03 09:28 Order name: IV Saline Lock; Complete Time: 09:54 [facility] 04/03 09:28 Order name: Labs collected and sent; Complete Time: [facility] 04/03 11:37 Order name: EKG - Nurse/Tech; Complete Time: 12:35 [facility] EC:44 Rate is 87 beats/min. Rhythm is regular. QRS [place] is Normal. NV interval is normal. QRS suzanne interval is normal. QT interval is normal. No Q waves. T waves are Normal. No ST changes noted. Clinical impression: Normal ECG and No evidence of ischemia. Interpreted by me. Reviewed by me. Administered Medications: 09:45 Drug: NS 0.9% IV 1000 ml IV at 1 bolus Per protocol; 1000 mL bolus Route: IV; Rate: 1 kb3 bolus; Site: right antecubital; 11:00 Follow up: Response: No adverse reaction; IV Status: Completed infusion; IV Intake: nj1 1000ml 09:45 Drug: Ondansetron IVP 4 mg IVP once; over 2 minutes Route: IVP; Site: right antecubital;kb3 10:30 Follow up: Response: No adverse reaction; Nausea is decreased nj1 09:45 Drug: morphine IVP or IV 2 mg IVP once over 4 mins Route: IVP; Infused Over: 4 mins; kb3 Site: right antecubital; 10:30 Follow up: Response: Pain is decreased nj1 09:54 Not Given (Duplicate Order): morphineor iv 2 mg IVP once over 4 mins kb3 10:03 Drug: morphine IVP or IV 2 mg IVP once over 4 mins Route: IVP; Infused Over: 4 mins; kb3 Site: right antecubital; 10:30 Follow up: Response: No adverse reaction; Pain is decreased nj1 12:30 Drug: NS 0.9% IV 1000 ml IV at 1 bolus Per protocol; 1000 mL bolus Route: IV; Rate: 1 nj1 bolus; Site: right antecubital; 13:30 Follow up: Response: No adverse reaction; IV Status: Completed infusion; IV Intake: nj1 1000ml 12:33 Drug: metroNIDAZOLE IVPB 500 mg 100 ml IVPB at 200 ml/hr once over 30 mins Volume: 100 nj1 ml; Route: IVPB; Rate: 200 ml/hr; Infused Over: 30 mins; Site: right antecubital; 13:05 Follow up: Response: No adverse reaction; IV Status: Completed infusion; IV Intake: nj1 100ml 13:10 Drug: Ciprofloxacin IVPB 400 mg 200 ml IVPB once over 60 mins Volume: 200 ml; Route: nj1 IVPB; Infused Over: 60 mins; Site: right antecubital; 14:10 Follow up: Response: No adverse reaction; IV Status: Completed infusion; IV Intake: nj1 200ml Disposition Summary: 04/03/23 12:45 Discharge Ordered Notes: Location: Home suzanne Problem: new suzanne Symptoms: have improved suzanne Condition: Stable suzanne Diagnosis - Abdominal pain, Generalized suzanne - Nausea suzanne - Diarrhea, unspecified suzanne - Infectious gastroenteritis and colitis, unspecified suzanne - Tobacco abuse counseling suzanne - Tobacco use suzanne - Cough suzanne Followup: suzanne - With: Private Physician - When: 2 - 3 days - Reason: Recheck today's complaints, Continuance of care, Re-evaluation by your physician Followup: suzanne - With: Salvador Johnson DO - When: 2 - 3 days - Reason: Recheck today's complaints, Continuance of care, Re-evaluation by your physician Discharge Instructions: - Discharge Summary Sheet suzanne - Abdominal Pain, Adult suzanne - Food Choices to Help Relieve Diarrhea, Adult suzanne - Diarrhea, Adult suzanne - Nausea and Vomiting, Adult suzanne - Nausea, Adult suzanne - Steps to Quit Smoking suzanne - Health Risks of Smoking suzanne - Nausea and Vomiting, Adult, Ktln-[id number] suzanne - Abdominal Pain, Adult, Etzo-ei-Fvvn suzanne - Diarrhea, Adult, Msko-zw-Ihii suzanne - Steps to Quit Smoking, Eohi-ve-Zklx suzanne - Aspirin and Your Heart suzanne - Cough, Adult suzanne Forms: - Medication Reconciliation Form suzanne - Thank You Letter suzanne - Antibiotic Education suzanne - Prescription Opioid Use suzanne - Patient Portal Instructions suzanne - Leadership Thank You Letter suzanne - Work release form nj1 Prescriptions: - ondansetron 4 mg Oral Tablet,disintegrating - take 1 tablet ORAL route every 6 to 8 hours as needed for nausea and vomiting; suzanne 20 tablet; Refills: 0, Product Selection Permitted - albuterol sulfate 90 mcg/actuation Inhalation HFA Aerosol Inhaler - inhale 2 inhalation INHALATION route every 4 to 6 hours as needed for shortness suzanne of breath or wheezing; 1 unit; Refills: 0, Product Selection Permitted - Flagyl 500 mg Oral tablet - take 1 tablet ORAL route every 8 hours for 7 days; 21 tablet; Refills: 0, [facility] Product Selection Permitted - Pepcid 20 mg Oral Tablet - take 1 tablet ORAL route every 12 hours for 10 days; 20 tablet; Refills: 0, [facility] Product Selection Permitted - Cipro 500 mg Oral Tablet - take 1 tablet ORAL route every 12 hours for 7 days; 14 tablet; Refills: 0, [facility] Product Selection Permitted - promethazine 25 mg Oral Tablet - take 1 tablet ORAL route every 6 hours As needed; 20 tablet; Refills: 0, [facility] Product Selection Permitted - dicyclomine 20 mg Oral tablet - take 1 tablet ORAL route 4 times per day; 28 tablet; Refills: 0, Product suzanne Selection Permitted Signatures: Dispatcher [employer] EDNJ Gian Davis MD MD cha Leal, Jahala, RN RN jl7 Mary Alice Ulloa RN RN ap3 Annie Enriquez, RN RN kb3 Lianen Morris, RN RN nj1 Corrections: (The following items were deleted from the chart) 12:44 11:38 Rate is 100 beats/min. Rhythm is regular. QRS [place] is Normal. NV interval is suzanne normal. QRS interval is normal. QT interval is normal. No Q waves. T waves are Normal. No ST changes noted. Clinical impression: NSR w/ Non-specific ST/T Changes and No evidence of ischemia. Interpreted by me. Reviewed by me. suzanne
--- NOTE | 2023-04-03 12:45 | ER ---
Nurse's Notes [facility] Name: Luis Hooper Age: 42 yrs Sex: Male : 1980 Arrival Date: 04/03/2023 Time: : Bed 10 Private MD: Diagnosis: Abdominal pain, Generalized;Nausea;Diarrhea, unspecified;Infectious gastroenteritis and colitis, unspecified;Tobacco abuse counseling;Tobacco use;Cough Presentation: 04/03 09:29 Chief complaint: Patient states: pt reports dry cough N/V/D x1 day. Coronavirus screen: ap3 Vaccine status: Patient reports being unvaccinated. Client denies travel out of the [place] in the last 14 days. Ebola Screen: Patient negative for fever greater than or equal to 101.5 degrees Fahrenheit, and additional compatible Ebola Virus Disease symptoms Patient denies exposure to infectious person. Patient denies travel to an Ebola-affected area in the 21 days before illness onset. Initial Sepsis Screen: Does the patient meet any 2 criteria? HR > 90 bpm. No. Patient's initial sepsis screen is negative. Does the patient have a suspected source of infection? No. Patient's initial sepsis screen is negative. Risk Assessment: Do you want to hurt yourself or someone else? Patient reports no desire to harm self or others. Onset of symptoms was April 02, 2023. 09: Method Of Arrival: Ambulatory ap3 09: Acuity: JAMIE 3 ap3 Triage Assessment: :30 General: Appears in no apparent distress. uncomfortable, Behavior is calm, cooperative. ap3 Pain: Complains of pain in head and abdomen Pain does not radiate. Pain currently is 4 out of 10 on a pain scale. GI: Reports lower abdominal pain, upper abdominal pain, nausea. Historical: - Allergies: : Tramadol HCl; ap3 - Home Meds: : None [Active]; ap3 - PMHx: : None; ap3 - PSHx: : Cholecystectomy; ap3 - Immunization history:: Adult Immunizations up to date, Client reports having NOT received the Covid vaccine. Last tetanus immunization: up to date. - Social history:: Smoking status: Patient denies any tobacco usage or history of. Screenin:30 [facility] ED Fall Risk Assessment (Adult) Score/Fall Risk Level 0 - 2 = Low Risk nj1 Oriented to surroundings, Maintained a safe environment, Hourly rounding (assess needs \T\ fall precautionary measures) done. Abuse screen: Denies threats or abuse. Denies injuries from another. Nutritional screening: No deficits noted. Tuberculosis screening: No symptoms or risk factors identified. Assessment: 09:58 Reassessment: See triage assessment. kb3 10:30 Reassessment: Patient appears in no apparent distress at this time. Patient and/or nj1 family updated on plan of care and expected duration. Pain level reassessed. Patient is alert, oriented x 3, equal unlabored respirations, skin warm/dry/pink. Patient states feeling better. Patient states symptoms have improved. Pain: Complains of pain in abdomen Pain currently is 3 out of 10 on a pain scale. 12:30 Reassessment: Patient appears in no apparent distress at this time. No changes from [facility] previously documented assessment. Patient and/or family updated on plan of care and expected duration. Pain level reassessed. Patient is alert, oriented x 3, equal unlabored respirations, skin warm/dry/pink. 12:56 Reassessment: Discharge on hold, IVF and ABX infusing. nj1 13:40 Reassessment: Patient appears in no apparent distress at this time. Patient and/or nj1 family updated on plan of care and expected duration. Pain level reassessed. Patient is alert, oriented x 3, equal unlabored respirations, skin warm/dry/pink. Vital Signs: 09:29 BP 151 / 107; Pulse 104; Resp 20; Temp 98.1; Pulse Ox 100% ; Weight 65.77 kg; Height 5 ap3 ft. 10 in. ; Pain 7/10; 12:30 BP 130 / 93; Pulse 104; Resp 18; Pulse Ox 97% on R/A; Pain 3/10; nj1 13:40 BP 124 / 87; Pulse 93; Resp 20; Pulse Ox 100% ; nj1 09:29 Body Mass Index 20.81 (65.77 kg, 177.8 cm) ap3 09:29 Pain Scale: Adult ap3 12:30 Pain Scale: Adult nj1 ED Course: 09:03 Patient arrived in ED. im 09:09 Gian Davis MD is Attending Physician. suzanne 09:30 Triage completed. ap3 09:30 Arm band placed on right wrist. ap3 09:45 No provider procedures requiring assistance completed. Inserted saline lock: 20 gauge kb3 in right antecubital area, using aseptic technique. 09:51 Lianne Morris, RN is Primary Nurse. nj1 09:53 Flu Sent. kb3 09:53 SARS RAPID Sent. kb3 09:54 CBC with Diff Sent. kb3 09:54 CMP Sent. kb3 09:54 Lipase Sent. kb3 10:13 CT Abd/Pelvis - IV Contrast Only In Process Unspecified. EDMS 10:17 Chest Pa And Lat (2 Views) XRAY In Process Unspecified. EDMS 10:30 Patient has correct armband on for positive identification. Bed in low position. Call nj1 light in reach. 12:36 EKG done, by ED staff, reviewed by Gian Davis MD. em1 12:44 Salvador Johnson DO is Referral Physician. [facility] 14:10 Provided Education on: discharge instructions. nj1 14:10 IV discontinued, intact, bleeding controlled. nj1 Administered Medications: 09:45 Drug: NS 0.9% IV 1000 ml IV at 1 bolus Per protocol; 1000 mL bolus Route: IV; Rate: 1 kb3 bolus; Site: right antecubital; 11:00 Follow up: Response: No adverse reaction; IV Status: Completed infusion; IV Intake: nj1 1000ml 09:45 Drug: Ondansetron IVP 4 mg IVP once; over 2 minutes Route: IVP; Site: right antecubital;kb3 10:30 Follow up: Response: No adverse reaction; Nausea is decreased nj1 09:45 Drug: morphine IVP or IV 2 mg IVP once over 4 mins Route: IVP; Infused Over: 4 mins; kb3 Site: right antecubital; 10:30 Follow up: Response: Pain is decreased nj1 09:54 Not Given (Duplicate Order): morphineor iv 2 mg IVP once over 4 mins kb3 10:03 Drug: morphine IVP or IV 2 mg IVP once over 4 mins Route: IVP; Infused Over: 4 mins; kb3 Site: right antecubital; 10:30 Follow up: Response: No adverse reaction; Pain is decreased nj1 12:30 Drug: NS 0.9% IV 1000 ml IV at 1 bolus Per protocol; 1000 mL bolus Route: IV; Rate: 1 nj1 bolus; Site: right antecubital; 13:30 Follow up: Response: No adverse reaction; IV Status: Completed infusion; IV Intake: nj1 1000ml 12:33 Drug: metroNIDAZOLE IVPB 500 mg 100 ml IVPB at 200 ml/hr once over 30 mins Volume: 100 nj1 ml; Route: IVPB; Rate: 200 ml/hr; Infused Over: 30 mins; Site: right antecubital; 13:05 Follow up: Response: No adverse reaction; IV Status: Completed infusion; IV Intake: nj1 100ml 13:10 Drug: Ciprofloxacin IVPB 400 mg 200 ml IVPB once over 60 mins Volume: 200 ml; Route: nj1 IVPB; Infused Over: 60 mins; Site: right antecubital; 14:10 Follow up: Response: No adverse reaction; IV Status: Completed infusion; IV Intake: nj1 200ml Medication: 14:10 VIS not applicable for this client. nj1 Intake: 11:00 IV: 1000ml; Total: 1000ml. nj1 13:05 IV: 100ml; Total: 1100ml. nj1 13:30 IV: 1000ml; Total: 2100ml. nj1 14:10 IV: 200ml; Total: 2300ml. nj1 Outcome: 12:45 Discharge ordered by . suzanne 14:10 Discharged to home ambulatory, nj1 14:10 Condition: stable nj1 14:10 Discharge instructions given to patient, Instructed on discharge instructions, follow up and referral plans. medication usage, Demonstrated understanding of instructions, follow-up care, medications, 14:10 Prescriptions given X 7 nj1 14:10 Patient left the ED. nj1 Signatures: Dispatcher [employer] EDPA Gian Davis MD MD cha Martinez, Eric em1 Mary Alice Ulloa RN RN ap3 Annie Enriquez, RN RN kb3 Lianne Morris RN RN nj1 Ksenia Flores Corrections: (The following items were deleted from the chart) 14:26 14:10 Condition: stable nj1 nj1 14:28 14:27 Patient left the ED. nj1 nj1
[2023-04-03 22:26] VITALS: BP 124/87; TEMP 98.1; O2SAT 100
== END ==
LOC: ER 09:01
DX: A09 Infectious gastroenteritis and colitis, unspecified (principal); R11.0 Nausea; Z71.6 Tobacco abuse counseling; Z72.0 Tobacco use; Z11.52 Encounter for screening for COVID-19
CPT/HCPCS: 36415; 71046; 74177; 80053; 83690; 84484; 85025; 87804; 87811; 93005; J0744; J2270; J2405; J7030; Q9967

== ENCOUNTER 2024-01-04 08:25 | Emergency (ER) | payer SELFPAY ==
--- OUTSIDE RECORDS SUMMARY | 2024-01-04 08:28 | XMS REPORT | Continuity of Care Document ---
Author Name Unknown Address [address] [place] [address] [facility] thconnect Address [address] [place] [address] Care Team Providers Care Senior Process Analyst Name Role Phone Pcp, Patient Does Not Have A Primary Care Physic goldie JOSEFINA RIOS Attending Clinician Unavailab le Josefina Moreno Attending Clinician Allergies, Adverse Reactions, Alerts Allergy Name Allergy Type Status Severity Reaction(s) Onset Date Inactive Date Treating Clinician Comments Source Tramadol Propensi ty to adverse reaction s Active Itching 10-11 00:00: 00 [facility] TRAMADOL DRUG INGREDI Active ITCHING 10-11 00:00: 00 [facility] NO KNOWN ALLERGIE S Drug Class Active [facility] Social History Social Habit Start Date Stop Date Quantity Comments Source Exposure to SARS-CoV-2 (event) 2021-10-01 00:00:00 2021-10-11 09:08:00 Not sure [facility] Sex Assigned At 1980 00:00:00 1980 00:00:00 [facility] Smoking Status Start Date Stop Date Source Tobacco smoking consumption unknown [facility] Vital Signs Vital Name Observation Time Observation Value Comments S ource Systolic blood pressure 2021-10-11 14:07:00 137 mm[Hg] [facility] Diastolic blood pressure 2021-10-11 14:07:00 95 mm[Hg] [place] o [facility] Heart rate 2021-10-11 14:07:00 115 /min [facility] Body temperature 2021-10-11 14:07:00 36.94 Krystin [facility] Respiratory rate 2021-10-11 14:07:00 18 /min [facility] Body height 2021-10-11 14:07:00 177.8 cm [facility] Body weight 2021-10-11 14:07:00 64.864 kg [facility] BMI 2021-10-11 14:07:00 20.52 kg/m2 [facility] Oxygen saturation in Arterial blood by Pulse oximetry 2021-10-11 14:07:00 98 /min [facility] Procedures Procedure Date / Time Performed Performing Clinicia n Source RAPID INFLUENZA A/B 2021-10-11 14:18:00 Josefina Rios [facility] COVID-19 (ID NOW RAPID TESTING) 2021-10-11 14:18:00 Josefina Rios [facility] NOTICE OF PRIVACY PRACTICES 2021-10-11 14:03:48 Doctor Unassigned, [place] [facility] Encounters Start Date/Time End Date/Time Encounter Type Admission Type Attending Clinicians Care Facility Care Department Encounter ID Source 2021-10-11 09:09:00 2021-10-11 10:18:00 Emergency X JOSEFINA RIOS [facility] ERT [id number] [facility] 2021-10-11 09:09:00 2021-10-11 10:18:00 Emergency Josefina Rios [facility] [id number] [facility]
[2024-01-04] MEDS ORDERED: predniSONE 20 MG TAB ONE (08:55)
[2024-01-04] MEDS ORDERED: IPRATROPIUM BROM 0.5MG/2.5ML ONE (08:55)
[2024-01-04] MEDS ORDERED: ALBUTEROL 2.5 MG/3 ML NEB SOL ONE (08:55)
[2024-01-04 09:24] LABS: SARS-CoV-2 Antigen CONTROL BLUE LINE VIS/BG OK; SARS-CoV-2 Antigen Rapid Res Negative (Negative)
--- NOTE | 2024-01-04 10:41 | RAD REPORT ---
EXAMINATION: ONE VIEW CHEST XR CLINICAL INDICATION: Male, 43 years old.,COUGH TECHNIQUE: Frontal chest projection is submitted. Examination is limited by patient positioning and t echnique. COMPARISON: 04/13/2023 FINDINGS: The lungs are mildly hypokinetic inflated and clear apart from stable central interstitial prominence which may relate to mild fibrotic changes or central congestion. No pneumothorax or sizable effusion. The heart is normal in size. Mediastinal contours are unremarkable. IMPRESSION: Stable findings as above.
[2024-01-04] MEDS ORDERED: BENZONATATE 100 MG CAP PO ONE (11:00)
[2024-01-04] MEDS ORDERED: NA CHLORIDE 0.9% 1,000 ML ONE (11:00)
[2024-01-04 11:15] LABS: Absolute Basophils 0.1 K/uL (0-0.5); Absolute Eosinophils 0.2 K/uL (0-0.5); Absolute Lymphocytes (CBC) 0.8 K/uL (0.7-4.9); Absolute Monocytes 0.7 K/uL (0.1-1.3); Absolute Neutrophil 10.6 K/uL (1.8-8.0); Basophils % 0.4 % (0-1.3); Eosinophils % 1.4 % (0-4.4); Hematocrit 43.2 % (39.6-49.0); Hemoglobin 14.5 g/dL (13.6-17.9); Lymphocytes % 6.2 % (15.3-44.8); MCH 28.2 pg (27.0-35.0); MCHC 33.6 g/dL (32.0-36.0); MCV 83.8 fL (80-100); MPV 8.5 fL (7.6-11.3); Monocytes % 5.4 % (3.3-12.3); Neutrophils % 86.6 % (41.7-73.7); Platelets 200 thou/uL (152-406); RBC Red Blood Cell Count 5.15 M/uL (4.33-5.43); Red Cell Distribution Width 14.2 % (12.1-15.2)
[2024-01-04 11:39] LABS: Anion Gap 6.4 mEq/L (5.0-15.0); Potassium 3.4 mEq/L (3.5-5.1)
--- NOTE | 2024-01-04 11:42 | EDPHYS ---
Physician Documentation [facility] Name: Luis Hooper Age: 43 yrs Sex: Male : 1980 Arrival Date: 01/04/2024 Time: 08:25 Bed 14 Private MD: ED Physician Roberto Gonzalez HPI: 01/03 08:49 This 43 yrs old Male presents to ER via Ambulatory with complaints of Chest ec2 Tightness, Cough. 08:49 Patient is a pack and a half smoker brought today for cough and shortness of breath ec2 onset of 2 days. Reports shortness of breath, no vomiting, no diarrhea.. Historical: - Allergies: 08:40 Tramadol HCl; hb - PSHx: 08:40 Cholecystectomy; Tonsillectomy; hb - Immunization history:: Adult Immunizations up to date. - Infectious Disease History:: Denies. - Social history:: Smoking status: Patient reports the use of cigarette tobacco products. ROS: 08:49 Constitutional: as per hpi ec2 Exam: 08:49 Constitutional: GEN: NAD Head: atraumatic Eyes: EOMI Ears: External ears are ec2 normal. CV: Tachycardia LUNGS: no respiratory distress, scattered wheezes noted ABD: non-distended SKIN: no evidence of rashes MSK: no evidence of trauma Vital Signs: 08:39 BP 151 / 94; Pulse 110; Resp 20; Temp 98.3(O); Pulse Ox 90% on R/A; Weight 65.77 kg; hb Height 5 ft. 10 in. ; Pain 5/10; 09:13 BP 142 / 93; Pulse 108; Resp 24; Pulse Ox 99% on R/A; ko1 10:18 BP 138 / 95; Pulse 100; Resp 15; Pulse Ox 99% ; ko1 10:55 BP 126 / 89; Pulse 120; Resp 22; Pulse Ox 97% ; ko1 11:40 BP 131 / 92; Pulse 95; Pulse Ox 97% ; ec2 11:52 BP 132 / 84; Pulse 110; Resp 22; Pulse Ox 99% on R/A; ko1 08:39 Body Mass Index 20.81 (65.77 kg, 177.8 cm) hb 08:39 Pain Scale: Adult hb MDM: 08:38 Medical Screening Exam initiated ec2 08:49 Data reviewed: vital signs. ED course: Patient arrives today for evaluation of ec2 shortness of breath. Examination remarkable for cardiopulmonary findings as above. Will obtain chest x-ray, viral swabs. Suspect viral infection. 10:48 ED course: Chest x-ray independently reviewed and interpreted by me, shows no acute ec2 intrathoracic process. No evidence of pneumonia. 11:40 ED course: Metabolic profile shows slight hypokalemia at 3.4. CBC with slight ec2 leukocytosis. Chest x-ray independently reviewed and interpreted by me, shows no acute cardiopulmonary process, no evidence of lobar pneumonia. Suspect viral infection. Will discharge home have patient follow-up PCP. Will prescribe the patient steroids, azithromycin, albuterol as well as Tessalon Perles.. 01/03 08:47 Order name: Influenza Screen (a \T\ B); Complete Time: 09:31 ec2 01/03 08:47 Order name: SARS RAPID; Complete Time: 09:31 ec2 01/03 10:57 Order name: CBC with Diff ec2 01/03 10:57 Order name: BMP; Complete Time: 11:39 ec2 01/03 11:21 Order name: CBC Smear Scan EDMS 01/03 08:47 Order name: CXR XRAY; Complete Time: 10:48 ec2 Administered Medications: 09:01 Drug: predniSONE PO 40 mg PO once Route: PO; ll1 09:31 Follow up: Response: No adverse reaction ko1 09:01 Drug: DuoNeb Nebulize (3:1) (2.5 mg - 0.5 mg) 3 ml Nebulizer once Route: Nebulizer; ll1 09:17 Follow up: Response: No adverse reaction ko1 11:12 Drug: NS 0.9% IV 1000 ml IV at 1000 ml once; to be given as a bolus over 60 minutes ko1 Route: IV; Rate: 1000 ml; Site: right antecubital; 11:54 Follow up: Response: No adverse reaction; IV Status: Completed infusion; IV Intake: ko1 1000ml 11:12 Drug: Tessalon Perle PO 200 mg PO once Route: PO; ko1 11:37 Follow up: Response: No adverse reaction ko1 Disposition Summary: 01/04/24 11:41 Discharge Ordered Notes: Location: Home ec2 Condition: Stable ec2 Diagnosis - Dyspnea, unspecified ec2 Followup: ec2 - With: Private Physician - When: - Reason: Re-evaluation by your physician Discharge Instructions: - Discharge Summary Sheet ec2 - Shortness of Breath, Adult, [id number] ec2 Forms: - Work release form ko1 - Medication Reconciliation Form ec2 - Antibiotic Education ec2 - Prescription Opioid Use ec2 - Patient Portal Instructions ec2 - Leadership Thank You Letter ec2 Prescriptions: - Tessalon Perles 100 mg Oral Capsule - take 1 capsule ORAL route every 8 hours As needed; 15 capsule; Refills: 0, ec2 Product Selection Permitted - Zithromax Z-Yehuda 250 mg Oral Tablet - take 1 tablet ORAL route as directed for 5 days Day 1 - take two (2) tablets ec2 one time. Day 2, 3, 4 , 5 take one (1) tablet once daily.; 6 tablet; Refills: 0, Product Selection Permitted - Prednisone 20 mg Oral Tablet - take 2 tablets ORAL route once daily for 5 days; 10 tablet; Refills: 0, Product ec2 Selection Permitted Signatures: Dispatcher [employer] EDChloé Sarah RN RN hb Lewis, Lynsay, RN RN 1 Ximena Zaidi RN RN ko1 Roberto Gonzalez MD MD ec2
--- NOTE | 2024-01-04 11:42 | ER ---
Nurse's Notes [facility] Name: Luis Hooper Age: 43 yrs Sex: Male : 1980 Arrival Date: 01/04/2024 Time: 08:25 Bed 14 Private MD: Diagnosis: Dyspnea, unspecified Presentation: 01/03 08:39 Chief complaint: Chest tightness and pain with cough x 2-3 days. Coronavirus screen: hb Client presents with at least one sign or symptom that may indicate coronavirus-19. Provider contacted for isolation considerations. Ebola Screen: No symptoms or risks identified at this time. Initial Sepsis Screen: Does the patient meet any 2 criteria? HR > 90 bpm. No. Patient's initial sepsis screen is negative. Does the patient have a suspected source of infection? No. Patient's initial sepsis screen is negative. Risk Assessment: Do you want to hurt yourself or someone else? Patient reports no desire to harm self or others. Onset of symptoms was January 02, 2024. 08:39 Method Of Arrival: Ambulatory 08:39 Acuity: JAMIE 3 hb Historical: - Allergies: 08:40 Tramadol HCl; hb - PSHx: 08:40 Cholecystectomy; Tonsillectomy; hb - Immunization history:: Adult Immunizations up to date. - Infectious Disease History:: Denies. - Social history:: Smoking status: Patient reports the use of cigarette tobacco products. Screenin:13 [facility] ED Fall Risk Assessment (Adult) History of falling in the last 3 months, ko1 including since admission No falls in past 3 months (0 pts) Confusion or Disorientation No (0 pts) Intoxicated or Sedated No (0 pts) Impaired Gait No (0 pts) Mobility Assist Device Used No (0 pt) Altered Elimination No (0 pt) Score/Fall Risk Level 0 - 2 = Low Risk Oriented to surroundings, Maintained a safe environment, Educated pt \T\ family on fall prevention, incl call for assistance when getting out of bed, Assessed \T\ reinforced patient's understanding of fall precautions, Hourly rounding (assess needs \T\ fall precautionary measures) done. Abuse screen: Denies threats or abuse. Denies injuries from another. Nutritional screening: No deficits noted. Tuberculosis screening: No symptoms or risk factors identified. Assessment: 09:13 General: Appears in no apparent distress. Behavior is calm, cooperative, appropriate ko1 for age. Pain: Pain does not radiate. Pain began gradually. Neuro: No deficits noted. Cardiovascular: Reports congestion/chest tightness. Respiratory: Reports cough that is. GI: No deficits noted. : No deficits noted. EENT: No deficits noted. Derm: No deficits noted. Musculoskeletal: No deficits noted. Vital Signs: 08:39 BP 151 / 94; Pulse 110; Resp 20; Temp 98.3(O); Pulse Ox 90% on R/A; Weight 65.77 kg; hb Height 5 ft. 10 in. ; Pain 5/10; 09:13 BP 142 / 93; Pulse 108; Resp 24; Pulse Ox 99% on R/A; ko1 10:18 BP 138 / 95; Pulse 100; Resp 15; Pulse Ox 99% ; ko1 10:55 BP 126 / 89; Pulse 120; Resp 22; Pulse Ox 97% ; ko1 11:40 BP 131 / 92; Pulse 95; Pulse Ox 97% ; ec2 11:52 BP 132 / 84; Pulse 110; Resp 22; Pulse Ox 99% on R/A; ko1 08:39 Body Mass Index 20.81 (65.77 kg, 177.8 cm) hb 08:39 Pain Scale: Adult hb ED Course: 08:28 Patient arrived in ED. mg5 08:38 Roberto Gonzalez MD is Attending Physician. ec2 08:40 Triage completed. hb 08:40 Arm band placed on. hb 08:53 Influenza Screen (a \T\ B) Sent. ll1 08:53 SARS RAPID Sent. ll1 09:00 Initial Neb Treatment Given as ordered Patient was instructed and evaluated on ko1 procedure Patient tolerated procedure well without adverse effect. 09:05 Ximena Zaidi, RN is Primary Nurse. ko1 09:13 Patient has correct armband on for positive identification. Allergy band placed. Bed in ko1 low position. Call light in reach. Side rails up X 1. Provided Education on: meds/tests. Pulse ox on. NIBP on. Door closed. Noise minimized. Lights dimmed. Warm blanket given. Pillow given. 09:13 No provider procedures requiring assistance completed. Patient maintains SpO2 ko1 saturation greater than 95% on room air. 09:48 CXR XRAY In Process Unspecified. EDMS 10:55 ED physician to see patient. ko1 11:12 Initial lab(s) drawn, by me, sent to lab. Inserted saline lock: 18 gauge in right ko1 antecubital area, using aseptic technique. Blood collected. Flushed with 10 mL NS. 11:52 IV discontinued, intact, bleeding controlled, No redness/swelling at site. Pressure ko1 dressing applied. Administered Medications: 09:01 Drug: predniSONE PO 40 mg PO once Route: PO; ll1 09:31 Follow up: Response: No adverse reaction ko1 09:01 Drug: DuoNeb Nebulize (3:1) (2.5 mg - 0.5 mg) 3 ml Nebulizer once Route: Nebulizer; ll1 09:17 Follow up: Response: No adverse reaction ko1 11:12 Drug: NS 0.9% IV 1000 ml IV at 1000 ml once; to be given as a bolus over 60 minutes ko1 Route: IV; Rate: 1000 ml; Site: right antecubital; 11:54 Follow up: Response: No adverse reaction; IV Status: Completed infusion; IV Intake: ko1 1000ml 11:12 Drug: Tessalon Perle PO 200 mg PO once Route: PO; ko1 11:37 Follow up: Response: No adverse reaction ko1 Medication: 09:13 VIS not applicable for this client. ko1 Intake: 11:54 IV: 1000ml; Total: 1000ml. ko1 Outcome: 11:41 Discharge ordered by . ec2 11:52 Discharged to home ambulatory, ko1 11:52 Condition: stable 11:52 Discharge instructions given to patient, Instructed on discharge instructions, follow up and referral plans. medication usage, Demonstrated understanding of instructions, follow-up care, medications, Prescriptions given X 3, 11:54 Patient left the ED. ko1 Signatures: Dispatcher [employer] EDChloé Sarah RN RN hb Lewis, Lynsay, RN RN ll1 Ximena Zaidi RN RN michel1 Barb Coffey 5 Roberto Gonzalez MD MD ec2 Corrections: (The following items were deleted from the chart) 11:13 09:13 Patient did not have IV access during this emergency room visit. ko1 ko1
[2024-01-04 11:58] VITALS: TEMP 98.3
[2024-01-04 12:04] VITALS: BP 132/84; O2SAT 99
[2024-01-04 12:05] LABS: Blood Morphology Comment NOT SEEN (NOT SEEN); Platelet Estimate ADEQ; White Blood Cell Scan OK (OK)
== END 2024-01-04 11:54 | disposition home or self-care (01) ==
LOC: ER 08:25
DX: R06.00 Dyspnea, unspecified (principal); R05.9 Cough, unspecified; R07.89 Other chest pain; F17.210 Nicotine dependence, cigarettes, uncomplicated
CPT/HCPCS: 36415; 71045; 80048; 85025; 87804; 87811; 94640; 96360; 99285; J7030; J7512; J7613; J7644